=== PATIENT | female | born 1985 | race Caucasian/White ===

== ENCOUNTER 2023-05-11 13:21 | Emergency (ER) | payer OTHER, SELFPAY ==
[2023-05-11 13:32] VITALS: BP 134/92; PULSE 99; RESP 18; TEMP 37.6; O2SAT 95; BMI 40.7
[2023-05-11 14:08] LABS: Basophils % 0.6 %; Hematocrit 39.7 % (36-47); Lymphocytes # 0.8 10^3/uL (0.8-4.8); Lymphocytes % 13.9 %; Mean Corpuscular HGB Conc 33.5 g/dL (30-55); Mean Corpuscular Volume 89.4 fl (85-98); Mean Platelet Volume 10.4 fL (7.4-10.4); Monocytes # 0.5 10^3/uL (0.2-0.9); Monocytes % 9.4 %; Neutrophils # 4.11 10^3/uL (1.8-7.7); Neutrophils % 75.9 %; Nucleated Red Blood Cells % 0 %; Platelet Count 238 10^3/cmm (157-399); Red Blood Count 4.44 10^6/uL (3.85-5.65); Red Cell Distribution Width 13.2 % (12.1-15.1); White Blood Count 5.41 10^3/uL (3.29-11.43)
[2023-05-11 14:24] LABS: HCG, Serum Qual Negative (Negative)
[2023-05-11 14:26] LABS: Alanine Aminotransferase 22 U/L (0-33); Alkaline Phosphatase 62 U/L (35-105); Anion Gap 15.6 (5-19); Aspartate Amino Transferase 19 U/L (0-32); Blood Urea Nitrogen 10 mg/dL (6-20); Calcium 9.7 mg/dL (8.5-10.5); Carbon Dioxide 25 mmol/L (22-29); Chloride 99 mmol/L (98-107); Globulin 3.2 g/dL (1.3-4.6); Glomerular Filtration Rate 70.1 mL/min (90-130); Glucose 145 mg/dL (65-115); Lipase 15 U/L (13-60); Osmolality Calculated 284 mOsm/kg (285-295); Potassium 3.6 mmol/L (3.5-5.1); Sodium 136 mmol/L (136-145); Total Bilirubin 0.3 mg/dL (0.15-1.2); Total Protein 7.2 g/dL (6.6-8.7)
[2023-05-11 15:01] VITALS: BP 165/100; PULSE 98; RESP 16; TEMP 37.3; O2SAT 97
[2023-05-11 15:33] LABS: Add Urine Microscopic? YES; Bilirubin Urine Neg (Negative); Blood Urine 2+ (Negative); Glucose Urine UA Norm (Normal); Ketones Urine 1+ (Negative); Leukocyte Esterase Urine Trace (Negative); Nitrate Urine Negative (Negative); Protein Urine Neg (Negative); Urine Appearance SL Hazy (CLEAR); Urine Color Yellow (Yellow); Urobilinogen Urine Norm (Negative); pH Urine 6 (5-7)
--- NOTE | 2023-05-11 15:35 | CTR_ITS ---
PROCEDURE INFORMATION: Exam: CT Abdomen And Pelvis With Contrast Exam date and time: 05/11/2023 4:22 PM Age: 37 years old Clinical indication: Abdominal pain; Flank; Other: Bilateral; Prior surgery; Surgery date: 6+ months; Surgery type: Bladder sling, tubal, appy; Additional info: Flank pain TECHNIQUE: Imaging protocol: Computed tomography of the abdomen and pelvis with contrast. Radiation optimization: All CT scans at this facility use at least one of these dose optimization techniques: automated exposure control; mA and/or kV adjustment per patient size (includes targeted exams where dose is matched to clinical indication); or iterative reconstruction. Contrast material: OMNI 350; Contrast volume: 100 ml; Contrast route: INTRAVENOUS (IV); COMPARISON: No relevant prior studies available. RADIATION DOSE METRICS: Total DLP (mGy-cm): 1201 FINDINGS: Lungs: 2 mm solid noncalcified nodule posterior left lung base. Otherwise, unremarkable lung bases. Liver: Diffuse fatty infiltration of the liver. Mild hepatomegaly. Otherwise, unremarkable. Gallbladder and bile ducts: Normal. No calcified stones. No ductal dilation. Pancreas: Normal. No ductal dilation. Spleen: Mild splenomegaly. Otherwise, unremarkable. Adrenal glands: Normal. No mass. Kidneys and ureters: Nonobstructing right renal calculi. There are several irregular low-density areas in the right kidney which are not cysts. This is most likely multifocal pyelonephritis. Less likely these are solid renal masses. Even less likely these are developing renal infarcts. Thickening of the wall of the right renal pelvis supports the diagnosis of urinary tract infection. Otherwise, unremarkable. Stomach and bowel: Unremarkable. No obstruction. No mucosal thickening. Appendix: Appendectomy. Intraperitoneal space: Unremarkable. No free air. No significant fluid collection. Vasculature: Unremarkable. No abdominal aortic aneurysm. Lymph nodes: Unremarkable. No enlarged lymph nodes. Urinary bladder: Unremarkable as visualized. Reproductive: Unremarkable as visualized. Bones/joints: Unremarkable. No acute fracture. Soft tissues: Unremarkable visualized body wall. Otherwise, unremarkable soft tissues. CT/CT abdomen pelvis w con* [id number] IMPRESSION: 1. Several low-density areas in the right kidney are most likely multifocal pyelonephritis. Thickening of the wall of the right renal pelvis favors the diagnosis of urinary tract infection. Much less likely these low-density right renal areas could be renal masses or infarcts. Consider contrast-enhanced MRI after appropriate medical management. 2. 2 mm solid noncalcified nodule left lower lung. For patients at low risk (minimal or absent history of smoking and of other known risk factors), no routine follow-up is indicated. For patients at high risk (history of smoking or of other known risk factors), consider optional CT Chest at 12 months. (Reference: Ricardo). 3. Additional details as above. REFERENCES: Ricardo Montgomery, et al. Guidelines for Management of Incidental Pulmonary Nodules Detected on CT Images: From the Fleischner Society 2017. Radiology. 2017;284(1):228-243.
[2023-05-11 15:37] LABS: Bacteria Urine TRACE /hpf
[2023-05-11 15:38] LABS: Add Urine Culture? No
[2023-05-11] MEDS: sodium chloride 0.9% 1,000 ML 999 ML IV (15:59)
--- NOTE | 2023-05-11 16:02 | ED_ITS ---
HPI - Female Genitourinary 2 General: Chief complaint: Urogenital-Female Stated complaint: abd pain Time Seen by Provider: 05/11/23 15:28 Source: patient Mode of arrival: ambulatory Limitations: no limitations History of Present Illness: 37-year-old female states she has had a urinary tract infection over the last week she has been on Cipro states she has had right-sided flank pain along with burning urination she states that she did felt like she had the flu she is having bodyaches and malaise she had a flu test earlier this week and today they are both negative she had negative COVID as well. States she is concerned she may have a kidney infection as she is continues to have flank pain. Associated symptoms: Reports abdominal pain; Deny headache(s) or nausea Review of Systems 2 Const: Denies: fever(s), chills, body aches or change in appetite ENMT: Denies: throat pain or dental pain Card: Denies: chest pain Resp: Denies: dyspnea GI: Reports: abdominal pain; Denies: nausea, vomiting or diarrhea : Reports: flank pain and dysuria Musc: Denies: neck pain or back pain Skin/Breast: Denies: rash Neuro: Denies: headache(s) Physical Exam 2 Const: COMMON NORMALS: no acute distress, patient oriented x3 and healthy appearing HENMT: COMMON NORMALS: normocephalic and atraumatic HEAD & SCALP: n ormocephalic and atraumatic Neck/C-Spine: COMMON NORMALS: full ROM and supple Chest: COMMONS NORMALS: normal inspection of the chest Resp: COMMON NORMALS: normal respiratory effort Cardio: COMMON NORMALS: regular rate, regular rhythm and No murmurs present (Cardio) RATE: regular rate RHYTHM: regular rhythm GI: COMMON NORMALS: Normal to inspection, nondistended, normoactive bowel sounds present, Soft to palpation, non-tender and no masses PALPATION: Yes Soft to palpation Extremity: COMMON NORMALS: normal to inspection and full ROM Neuro: COMMON NORMALS: patient oriented x3, moves all extremities and no focal motor deficits Psych: COMMON NORMALS: mental status grossly normal, Normal thought process present and cooperative THOUGHT PROCESS: Normal thought process present Skin: COMMON NORMALS: no rashes or lesions noted and no wounds GENERAL SKIN EXAM: no rashes or lesions noted Course 2 Vital Signs: Vital signs: Vital Signs Temperature 99.1 F 05/11/23 15:01 Pulse Rate 98 05/11/23 15:01 Respiratory Rate 16 05/11/23 15:01 Blood Pressure 165/100 05/11/23 15:01 Pulse Oximetry 97 05/11/23 15:01 Oxygen Delivery Me thod Room Air 05/11/23 15:01 MDM - Female Medical Decision Making Patient presents here with flank pain CT did show a likely pyelonephritis her white count here is normal urinalysis shows no severe infection she is currently on Cipro is likely treating the Shakir did inform her of the CT findings she is to follow-up with PCP next week I did inform her if her pain worsens she likely needs an MRI if she has fever vomiting she is return to the ER she understands agrees to plan. Medical Records I reviewed the patient's medical records. Lab Data I reviewed the patient's lab results. 05/11/23 13:59 05/11/23 13:59 Radiology Impressions Abdomen/Pelvis CT 05/11/23 15:35 IMPRESSION: 1. Several low-density areas in the right kidney are most likely multifocal pyelonephritis. Thickening of the wall of the right renal pelvis favors the diagnosis of urinary tract infection. Much less likely these low-density right renal areas could be renal masses or infarcts. Consider contrast-enhanced MRI after appropriate medical management. 2. 2 mm solid noncalcified nodule left lower lung. For patients at low risk (minimal or absent history of smoking and of other known risk factors), no routine follow-up is indicated. For patients at high risk (history of smoking or of other known risk factors), consider optional CT Chest at 12 months. (Reference: Ricardo). 3. Additional details as above. REFERENCES: Ricardo Montgomery, et al. Guidelines for Management of Incidental Pulmonary Nodules Detected on CT Images: From the Fleischner Society 2017. Radiology. 2017;284(1):228-243. Laboratory Results WBC 5.41 10^3/uL (3.29-11.43) 05/11/23 13:59 RBC 4.44 10^6/uL (3.85-5.65) 05/11/23 13:59 Hgb 13.30 g/dL (11.27-16.99) 05/11/23 13:59 Hct 39.7 % (36-47) 05/11/23 13:59 MCV 89.4 fl (85-98) 05/11/23 13:59 MCH 30.0 pg (27-33) 05/11/23 13:59 MCHC 33.5 g/dL (30-55) 05/11/23 13:59 RDW 13.2 % (12.1-15.1) 05/11/23 13:59 Plt Count 238 10^3/cmm (157-399) 05/11/23 13:59 MPV 10.4 fL (7.4-10.4) 05/11/23 13:59 Neut % (Auto) 75.9 % 05/11/23 13:59 Lymph % (Auto) 13.9 % 05/11/23 13:59 [place] % (Auto) 9.4 % 05/11/23 13:59 Eos % (Auto) 0.0 % 05/11/23 13:59 Baso % (Auto) 0.6 % 05/11/23 13:59 Neut # (Auto) 4.11 10^3/uL (1.8-7.7) 05/11/23 13:59 Lymph # (Auto) 0.8 10^3/uL (0.8-4.8) 05/11/23 13:59 [place] # (Auto) 0.5 10^3/uL (0.2-0.9) 05/11/23 13:59 Eos # (Auto) 0.0 10^3/uL (0.0-0.8) 05/11/23 13:59 Baso # (Auto) 0.0 10^3/uL (0.0-0.1) 05/11/23 13:59 Nucleated RBC % (auto) 0 % 05/11/23 13:59 Nucleated RBCs # 0.0 /100WBC 05/11/23 13:59 Sodium 136 mmol/L (136-145) 05/11/23 13:59 Potassium 3.6 mmol/L (3.5-5.1) 05/11/23 13:59 Chloride 99 mmol/L (98-107) 05/11/23 13:59 Carbon Dioxide 25 mmol/L (22-29) 05/11/23 13:59 Anion Gap 15.6 (5-19) 05/11/23 13:59 BUN 10 mg/dL (6-20) 05/11/23 13:59 Creatinine 0.9 mg/dL (0.5-0.9) 05/11/23 13:59 GFR Calculation 70.1 mL/min (90-130) L 05/11/23 13:59 Glucose 145 mg/dL (65-115) H 05/11/23 13:59 Calculated Osmolality 284 mOsm/kg (285-295) L 05/11/23 13:59 Calcium 9.7 mg/dL (8.5-10.5) 05/11/23 13:59 Total Bilirubin 0.3 mg/dL (0.15-1.2) 05/11/23 13:59 AST 19 U/L (0-32) 05/11/23 13:59 ALT 22 U/L (0-33) 05/11/23 13:59 Alkaline Phosphatase 62 U/L (35-105) 05/11/23 13:59 Total Protein 7.2 g/dL (6.6-8.7) 05/11/23 13:59 Albumin 4.0 g/dL (3.5-5.2) 05/11/23 13:59 Globulin 3.2 g/dL (1.3-4.6) 05/11/23 13:59 Lipase 15 U/L (13-60) 05/11/23 13:59 HCG, Qual Negative (Negative) 05/11/23 13:59 Urine Color Yellow (Yellow) 05/11/23 13:26 Urine Appearance Sl hazy (CLEAR) A 05/11/23 13:26 Urine pH 6 (5-7) 05/11/23 13:26 Ur Specific [place] 1.010 (1.005-1.030) 05/11/23 13:26 Urine Protein Neg (Negative) 05/11/23 13:26 Urine Glucose (UA) Norm (Normal) 05/11/23 13:26 Urine Ketones 1+ (Negative) H 05/11/23 13:26 Urine Blood 2+ (Negative) H 05/11/23 13:26 Urine Nitrate Negative (Negative) 05/11/23 13:26 Urine Bilirubin Neg (Negative) 05/11/23 13:26 Urine Urobilinogen Norm mg/dL (Negative) 05/11/23 13:26 Ur Leukocyte Esterase Trace (Negative) H 05/11/23 13:26 Urine RBC 5-10 /hpf (0-2) H 05/11/23 13:26 Urine WBC 5-10 /hpf (0-5) H 05/11/23 13:26 Ur Squamous Epith Cells 5-10 /hpf (0-5) H 05/11/23 13:26 Amorphous Sediment Not Reportable 05/11/23 13:26 Urine Bacteria Trace /hpf (NONE) 05/11/23 13:26 Urine Mucus None /hpf 05/11/23 13:26 All radiology interpretation(s) finalized by discharge Discharge Plan Discharge Patient Disposition: Home Clinical Impression: Pyelonephritis Condition: Stable Prescriptions: New hydrocodone-acetaminophen 5-325 mg tablet 1 tab PO Q6H PRN (Reason: pain) Qty: 14 0RF No Action ondansetron HCl 4 mg tablet 4 mg PO Q4H ciprofloxacin HCl 500 mg tablet 500 mg PO BID ibuprofen 200 mg Tablet 400 mg PO Q6H PRN (Reason: Pain) Discharge Orders: Discharge ED (Routine); Ordered 05/11/23 Ordered By: Travis Murillo Discharge Diet: Advance as tolerated Discharge Activity: Resume usual activity Patient Instructions: Kidney Infection (ED) Coding Level of Care Code ED Hot End Operator for Flavio Yoo
[2023-05-11] MEDS: ondansetron 2 mg/ML SDV 2 mL 4 MG IVP (16:04)
[2023-05-11] MEDS: ketorolac 30 mg/mL INJ IVP (16:06)
[2023-05-11] MEDS: iohexol 350 mg/mL 500 mL Btl (per mL) IV (16:25)
[2023-05-11] MEDS: cefTRIAXone 1,000 MG in sodium chloride 0.9% (plus) 50 ML 100 MG IV (17:14)
[2023-05-11 17:17] VITALS: BP 136/94; PULSE 98; O2SAT 96
[2023-05-11 17:38] VITALS: BP 127/86; PULSE 81; O2SAT 96
== END 2023-05-11 17:40 | disposition home or self-care (01) ==
PROVIDERS: Emergency Provider Emergency Medicine
DX: N12 Tubulo-interstitial nephritis, not specified as acute or chronic (principal)
CPT/HCPCS: 36415; 74177; 80053; 81001; 83690; 84703; 85025; 96365; 96375; 99285; J0696; J1885; J2405; J7030; Q9967

== ENCOUNTER → 2023-12-11 10:17 | Outpatient (BNVA) | payer OTHER, SELFPAY | PROVIDERS: Visit Provider Nurse Practitioner Family | DX: R30.0 Dysuria (principal) | CPT/HCPCS: 81000; 87086 ==